=== PATIENT | male | born 1970 | race Caucasian/White ===

== ENCOUNTER 2017-08-07 19:21 | Emergency (ER) | payer OTHER ==
[2017-08-07 20:18] LABS: ABS Basophils 0.1 10^3/ul (0-0.2); ABS Eosinophils 0.4 10^3/ul (0-0.6); ABS Lymphocytes 1.8 10^3/ul (1.0-4.8); ABS Monocytes 0.6 10^3/ul (0-0.8); ABS Neutrophils 4.2 10^3/ul (1.5-7.7); ABS Nucleated RBC 0 10^3/ul; Hematocrit 43 % (42-52); Hemoglobin 15.4 g/dl (14.0-18.0); Lymphocyte % 25.2 % (25-47); Mean Corpuscular HGB Conc 36 g/dl (31-36); Mean Corpuscular Hemoglobin 31 pg (27-31); Mean Corpuscular Volume 86 fL (80-94); Mean Platelet Volume 8 um3 (7.4-10.4); Nucleated Red Blood Cells % 0.1; Platelet Count 253 10^3/ul (150-450); Red Blood Count 5.04 10^6/ul (4.0-5.4); Red Cell Distribution Width 13 % (10.5-15); White Blood Count 7.2 10^3/ul (3.5-10.8)
[2017-08-07 20:27] LABS: INR 0.94 (0.77-1.02)
[2017-08-07 20:35] LABS: EGFR Non-African American 94.1 (>60)
[2017-08-07 21:12] VITALS: BP 137/72
--- NOTE | 2017-08-07 21:16 | ED ---
Francisco Ervin Abhishek, scribed for Namrata Pedraza MD on 08/07/17 at 1939 . HPI Chest Pain - HPI Summary HPI Summary: This patient is a 46 year old M presenting to [facility] with a chief complaint of chest pain since few hours ago (08/07/17). 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 The patient rates the pain 0/10 in severity. Symptoms aggravated by nothing. Symptoms alleviated by aspirin. Patient reports left arm pain, neck pain prior to ED arrival, intermittent numbness in left arm (whole arm; for the past few days), diaphoresis, and anxiety. No medications reported and other medications reviewed. - History of Current Complaint Time Seen by Provider: 08/07/17 19:26 Hx Obtained From: Patient Onset/Duration: Started Hours Ago Timing: Constant Initial Severity: Mild Current Severity: None Pain Intensity: 0 Pain Scale Used: 0-10 Numeric Character: Other: - neck pain prior to ED arrival Aggravating Factor(s): Nothing Alleviating Factor(s): Other: - Aspirin Associated Signs and Symptoms: Positive: Numbness - intermittent numbness in left arm (whole arm; for the past few days), Other: - left arm pain - Allergy/Home Medications Allergies/Adverse Reactions: Allergies Allergy/AdvReac Type Severity Reaction Status Date / Time No Known Allergies Allergy Verified 08/07/17 19:30 Home Medications: Home Medications NK [No Home Medications Reported] 08/07/17 [History Confirmed 08/07/17] PMH/Surg Hx/FS Hx/Imm Hx Endocrine/Hematology History: Denies: Hx Diabetes Cardiovascular History: Denies: Hx Cardiac Arrest, Hx Coronary Artery Disease Infectious Disease History: No Infectious Disease History: Denies: Traveled Outside the [place] in Last 30 Days - Family History Known Family History: Negative: Cardiac Disease, Diabetes - Social History Occupation: Employed Full-time Lives: With Family Review of Systems Positive: Skin Diaphoresis Eyes: Negative ENT: Negative Positive: Chest Pain Respiratory: Negative Gastrointestinal: Negative Genitourinary: Negative Musculoskeletal: Other - left arm pain Skin: Negative Positive: Numbness - Left arm numbness ( whole arm; past few days; intermittent) Positive: Anxious All Other Systems Reviewed And Are Negative: Yes Physical Exam - Summary Physical Exam Summary: VITAL SIGNS: Reviewed. GENERAL: ~Patient is a well-developed and nourished (MALE) who is lying comfortable in the stretcher. Patient is not in any acute respiratory distress. HEAD AND FACE: No signs of trauma. No ecchymosis, hematomas or skull depressions. No sinus tenderness. EYES: PERRLA, EOMI x 2, No injected conjunctiva, no nystagmus. EARS: Hearing grossly intact. Ear canals and tympanic membranes are within normal limits. MOUTH: Oropharynx within normal limits. NECK: Supple, trachea is midline, no adenopathy, no JVD, no carotid bruit, no c- spine tenderness, neck with full ROM. CHEST: Symmetric, no tenderness at palpation LUNGS: Clear to auscultation bilaterally. No wheezing or crackles. CVS: Regular rate and rhythm, S1 and S2 present, no murmurs or gallops appreciated. ABDOMEN: Soft, non-tender. No signs of distention. No rebound no guarding, and no masses palpated. Bowel sounds are normal. EXTREMITIES: FROM in all major joints, no edema, no cyanosis or clubbing. NEURO: Alert and oriented x 3. No acute neurological deficits. Speech is normal and follows commands. SKIN: Dry and warm Triage Information Reviewed: Yes Vital Signs On Initial Exam: Initial Vitals Temp Pulse Resp BP Pulse Ox 98.1 F 83 16 151/90 100 08/07/17 19:28 08/07/17 19:28 08/07/17 19:28 08/07/17 19:28 08/07/17 19:28 Vital Signs Reviewed: Yes Diagnostics - Vital Signs Vital Signs Temp Pulse Resp BP Pulse Ox 08/07/17 19:28 98.1 F 83 16 151/90 100 - Laboratory Result Diagrams: 08/07/17 20:07 08/07/17 20:07 Lab Statement: Any lab studies that have been ordered have been reviewed, and results considered in the medical decision making process. - Radiology Chest X-ray Radiology Interpretation Completed By: ED Physician - ED Physician has reviewed the Chest X-ray report and the chest x-ray shows no acute processes. - EKG 1953 EKG Interpretation: Normal axis. Normal interval. No ischemic changes taken at 1953 Chest Pain Course/Dx - Course Course Of Treatment: 46 y/o male pt presented to the [facility] with a chief complaint of chest pain. Patient also reports of left arm pain and left arm numbess. The numbness was described as intermittent and lasting a few days. Onset of the chest pain was a few hours ago in a "distractive driving class." Pt recieved an EKG and Chest x-ray. The chest x-ray was reviewed by the ED Physician and was reported to show no acute processes. The pt is highly recommended to take a stress test. The dx will be atypical chest pain and left arm numbness. The pt will be discharged home. - Diagnoses Provider Diagnoses: Atypical chest pain, Left arm numbness Discharge - Discharge Plan Condition: Stable Disposition: HOME Patient Education Materials: Chest Pain (ED), Arm Pain (ED) Referrals: [facility]YS[facility]IAN REFERRAL [Outside] No Primary Care Phys,NOPCP [Primary Care Provider] - (We recommend follow up with PCP within 2 to 3 days.) Additional Instructions: RETURN TO EMERGENCY DEPARTMENT FOR ANY NEW OR WORSENING SYMPTOMS We recommend pt receives a stress test The documentation as recorded by the Francisco medel Abhishek accurately reflects the service I personally performed and the decisions made by , Namrata Pedraza MD.
--- NOTE | 2017-08-07 21:20 | RAD ---
Indication: Chest pain. Single frontal view of the chest performed at 2003 hours was reviewed. No prior study is available. No mediastinal shift is noted. Heart is of normal size and configuration. Lung cotton appear clear. IMPRESSION: NO ACTIVE CARDIOPULMONARY DISEASE IS NOTED.
== END 2017-08-07 21:18 | disposition home or self-care (01) ==
LOC: ED 19:21
DX: R07.89 Other chest pain (principal); R20.0 Anesthesia of skin
CPT/HCPCS: 36415; 71045; 80053; 82550; 83735; 84484; 85025; 85610; 85730; 93005; 99283